=== PATIENT | female | born 1960 | race Native Hawaiian/Other Pacific Islander ===

== ENCOUNTER 2017-01-09 14:08 | Outpatient (CLI) | payer OTHER ==
[~2017-01-09 14:08] MED LIST: ALBU90AE13 INH; CARAFATE1 GM PO; CHELATED K99 MG PO; CLONAZEP ODT2 MG PO; HYDACET7.5 PO; HYDR25TA60 PO; LIPITOR10 MG PO; LISI20TA11 PO; LISI20TA31 OR; MAG-OXIDE400 MG PO; MELATONIN1 MG PO; METO50TA63 PO; METR250T19 PO; MOBIC7.5 M1 PO; MUPIROCIN21 EX; NYST100010 EX; PANT40TA PO; PREMPRO1 TA1 OR; PRISTIQ50 MG OR; TRIAMCINOLON0.5 % TOP; XANAX XR1 MG OR
== END 2017-01-09 19:15 | disposition home or self-care (01) ==
LOC: MAMMO 14:08
DX: Z12.31 Encounter for screening mammogram for malignant neoplasm of breast (principal)
CPT/HCPCS: G0202-TC

== ENCOUNTER 2018-01-22 14:11 | Outpatient (CLI) | payer OTHER | END 2018-01-22 22:56 | disposition home or self-care (01) | LOC: RAD 14:11 | DX: M25.561 Pain in right knee (principal); M25.562 Pain in left knee; M54.5 Low back pain ==

== ENCOUNTER 2018-02-05 11:19 | Outpatient (CLI) | payer OTHER ==
[2018-02-05 12:15] LABS: POTASSIUM 4.3 mmol/L (3.6-5.2)
[2018-02-05 12:29] LABS: PLATELET COUNT 217 K/uL (152-353)
== END 2018-02-05 20:24 | disposition home or self-care (01) ==
LOC: LABW 11:19
PROVIDERS: Nurse Practitioner Family
DX: R53.83 Other fatigue (principal); Z11.8 Encounter for screening for other infectious and parasitic diseases; R79.89 Other specified abnormal findings of blood chemistry
CPT/HCPCS: 36415; 80053; 80061; 81000; 82306; 82607; 82746; 84439; 84443; 85027; 86803

== ENCOUNTER 2018-02-13 10:48 | Outpatient (CLI) | payer OTHER | END 2018-02-13 21:48 | disposition home or self-care (01) | LOC: MAMMO 10:48 | DX: Z12.31 Encounter for screening mammogram for malignant neoplasm of breast (principal); M25.561 Pain in right knee ==

== ENCOUNTER 2019-10-16 10:53 | Emergency (ER) | payer OTHER ==
[~2019-10-16] VITALS: Ht 160 cm; Wt 79.4 kg
[2019-10-16 12:23] LABS: PLATELET COUNT 195 K/uL (152-353)
[2019-10-16 12:34] LABS: POTASSIUM 3.9 mmol/L (3.6-5.2)
[2019-10-16 13:55] VITALS: BP 179/77; TEMP 98.4
== END 2019-10-16 14:05 | disposition home or self-care (01) ==
LOC: ED 10:53
PROVIDERS: Hospitalist
DX: J44.1 Chronic obstructive pulmonary disease with (acute) exacerbation (principal)
CPT/HCPCS: 80048; 85027; 87502; 87651; 94664; 99283

== ENCOUNTER 2020-07-01 15:50 | Outpatient (CLI) | payer OTHER | END 2020-07-01 23:18 | disposition home or self-care (01) | LOC: RAD 15:50 | DX: M17.0 Bilateral primary osteoarthritis of knee (principal) ==

== ENCOUNTER 2020-08-31 13:37 | Outpatient (CLI) | payer OTHER | END 2020-08-31 19:09 | disposition home or self-care (01) | LOC: MAMMO 13:37 | DX: Z12.31 Encounter for screening mammogram for malignant neoplasm of breast (principal) ==

== ENCOUNTER 2021-05-03 19:20 | Emergency (ER) | payer OTHER ==
[~2021-05-03] VITALS: Ht 160 cm; Wt 88.0 kg
[2021-05-03 21:06] LABS: PLATELET COUNT 193 K/uL (152-353)
[2021-05-04 00:42] VITALS: BP 166/79; TEMP 97.1
== END 2021-05-04 00:42 | disposition home or self-care (01) ==
LOC: ED 19:20
PROVIDERS: Family Medicine
DX: K21.9 Gastro-esophageal reflux disease without esophagitis (principal); K58.8 Other irritable bowel syndrome; M51.37 Other intervertebral disc degeneration, lumbosacral region
CPT/HCPCS: 36415; 80053; 81000; 82150; 83690; 85027; 96374; 96375; 99284; J1885; J3490; Q9963

== ENCOUNTER 2021-05-09 15:46 | Outpatient (CLI) | payer OTHER | END 2021-05-09 19:57 | disposition home or self-care (01) | LOC: US 15:46 | PROVIDERS: ATTEND Registered Nurse | DX: R10.11 Right upper quadrant pain (principal) ==

== ENCOUNTER 2021-05-20 08:11 | Outpatient (CLI) | payer OTHER | END 2021-05-20 22:34 | disposition home or self-care (01) | LOC: NM 08:11 | PROVIDERS: ATTEND Registered Nurse | DX: R10.33 Periumbilical pain (principal) | CPT/HCPCS: A9537 ==

== ENCOUNTER 2022-02-16 12:55 | Outpatient (CLI) | payer OTHER | END 2022-02-16 22:09 | disposition home or self-care (01) | LOC: MAMMO 12:55 | PROVIDERS: ATTEND Registered Nurse | DX: Z12.31 Encounter for screening mammogram for malignant neoplasm of breast (principal) ==

== ENCOUNTER 2022-03-09 14:25 | Outpatient (CLI) | payer OTHER | END 2022-03-09 21:21 | disposition home or self-care (01) | LOC: MAMMO 14:25 | PROVIDERS: ATTEND Nurse Practitioner Family | DX: N64.89 Other specified disorders of breast (principal) ==

== ENCOUNTER 2022-09-24 01:55 | Emergency (ER) | payer OTHER ==
[~2022-09-24] VITALS: Ht 160 cm; Wt 83.9 kg
[2022-09-24 02:39] LABS: PLATELET COUNT 256 K/uL (152-353)
[2022-09-24 06:05] VITALS: BP 127/64; TEMP 98.7
== END 2022-09-24 06:05 | disposition home or self-care (01) ==
LOC: ED 01:55
PROVIDERS: Family Medicine
DX: M54.42 Lumbago with sciatica, left side (principal); M54.41 Lumbago with sciatica, right side; Z91.81 History of falling
CPT/HCPCS: 80053; 85027; 96374; 99284; J1100; J2175

== ENCOUNTER 2022-09-29 13:26 | Outpatient (CLI) | payer OTHER | END 2022-09-29 19:05 | disposition home or self-care (01) | LOC: MRI 13:26 | PROVIDERS: ATTEND Registered Nurse | DX: M54.16 Radiculopathy, lumbar region (principal) ==

== ENCOUNTER 2023-06-04 17:24 | Emergency (ER) | payer OTHER ==
[~2023-06-04] VITALS: Ht 160 cm; Wt 77.1 kg
[2023-06-04 17:30] VITALS: TEMP 98
[2023-06-04 18:38] LABS: PLATELET COUNT 271 K/uL (152-353); POTASSIUM 3.4 mmol/L (3.6-5.2)
[2023-06-04 20:22] VITALS: BP 171/77
== END 2023-06-04 20:27 | disposition short-term general hospital (02) ==
LOC: ED 17:24
PROVIDERS: Family Medicine
DX: I21.4 Non-ST elevation (NSTEMI) myocardial infarction (principal); R77.8 Other specified abnormalities of plasma proteins
CPT/HCPCS: 36415; 80053; 84484; 85027; 87635; 93005; 96361; 96365; 96372; 96375; 99285; J1650; J2270; J2405; J2550; U0003